=== PATIENT | female | born 1995 | race Caucasian/White ===

== ENCOUNTER 2018-03-29 20:53 | Emergency (ER) | payer MEDICAID ==
[~2018-03-29] VITALS: Ht 167.6 cm; Wt 80.5 kg
[2018-03-29 21:06] VITALS: BP 124/86
== END 2018-03-30 00:37 | disposition left against medical advice (07) ==
LOC: ER 20:54
DX: M54.9 Dorsalgia, unspecified (principal); Z53.21 Procedure and treatment not carried out due to patient leaving prior to being seen by health care provider

== ENCOUNTER 2018-09-12 14:36 | Inpatient (IN) | payer MEDICAID, OTHER ==
[~2018-09-12] VITALS: Ht 167.6 cm; Wt 85.0 kg
[2018-09-12 15:20] LABS: BASOPHILS % (AUTO) 0.2 % (0-1); EOSINOPHILS % (AUTO) 0 % (0-6); HEMATOCRIT 38.8 % (35.0-45.0); HEMOGLOBIN 13.3 g/dl (12.0-16.0); LYMPHOCYTES # (AUTO) 0.7 X10'3 (1.1-4.8); LYMPHOCYTES % (AUTO) 3.8 % (21-51); MEAN CORPUSCULAR HEMOGLOBIN 29.4 PG (27.0-31.0); MEAN CORPUSCULAR HGB CONC 34.4 g/dL (33.0-36.5); MEAN CORPUSCULAR VOLUME 85.6 FL (78-98); MEAN PLATELET VOLUME 7.4 FL (7.4-10.4); MONOCYTES # (AUTO) 0.8 X10'3 (0-0.9); MONOCYTES % (AUTO) 4.1 % (2-12); NEUTROPHILS # (AUTO) 17.3 X10'3 (1.8-7.7); NEUTROPHILS % (AUTO) 91.9 % (42-75); PLATELET COUNT 214 X10'3 (140-440); RED BLOOD COUNT 4.53 X10'6 (4.20-5.60); RED CELL DISTRIBUTION WIDTH 12.9 % (11.5-14.5); WHITE BLOOD COUNT 18.8 X10'3 (4.5-11.0)
[2018-09-12] MEDS ORDERED: normal saline 1000ML IV soln IVB ONE ×2 (15:25→16:25)
[2018-09-12] MEDS ORDERED: ondansetron/PF 4mg/2ml inj IV ONE (15:25)
[2018-09-12 16:04] LABS: ALANINE AMINOTRANSFERASE 23 U/L (12-78); ALBUMIN 2.6 G/DL (3.4-5.0); ALBUMIN/GLOBULIN RATIO 0.5 (1.1-1.5); ALKALINE PHOSPHATASE 107 IU/L (46-116); ANION GAP 15 (8-16); ASPARTATE AMINO TRANSFERASE 14 U/L (10-37); BILIRUBIN,TOTAL 1.5 MG/DL (0.1-1.0); BLOOD UREA NITROGEN 24 MG/DL (7-18); BUN/CREATININE RATIO 11.4 (6.6-38.0); CALCIUM 8.5 MG/DL (8.5-10.1); CHLORIDE 91 MMOL/L (99-107); GLUCOSE 100 MG/DL (70-104); SODIUM 129 MMOL/L (135-145); TOTAL PROTEIN 7.4 G/DL (6.4-8.2); eGFR 29 ML/MIN
[2018-09-12 16:17] LABS: POTASSIUM 2.7 MMOL/L (3.5-5.1)
[2018-09-12] MEDS ORDERED: CefTRIAXone 2gm/D5W 50ml 50 ML IV ONE (16:30)
[2018-09-12] MEDS ORDERED: potassium Cl 20 mEq SR tablet PO STA (16:42)
[2018-09-12] MEDS ORDERED: potassium Cl 10 mEq/100mL bag IV ONE (16:45)
[2018-09-12] MEDS ORDERED: NO HOME MEDS (17:21)
[2018-09-12] MEDS ORDERED: magnesium 2GM in 50ml NS 50 ML IV PRN (17:40)
[2018-09-12] MEDS ORDERED: potassium CL 10mEq/100ml bag 100 ML IV PRN ×2 (17:40)
[2018-09-12] MEDS ORDERED: diphenhydrAMINE 50 mg/ml inj IV PRN (17:40)
[2018-09-12] MEDS ORDERED: acetaminophen 325mg tablet PO PRN ×2 (17:40)
[2018-09-12] MEDS ORDERED: morphine 2 MG/ML inj. syringe IV PRN ×2 (17:40)
[2018-09-12] MEDS ORDERED: magnesium 4gm in 100ml NS 100 ML IV PRN (17:40)
[2018-09-12] MEDS ORDERED: magnesium Cl slow-release 64mg tablet PO PRN (17:40)
[2018-09-12] MEDS ORDERED: HYDROcodone/acetaminophen 5mg/325mg tablet PO PRN (17:40)
[2018-09-12] MEDS ORDERED: magnesium hydroxide 30ml (MOM) UD suspension PO PRN (17:40)
[2018-09-12] MEDS ORDERED: diphenhydrAMINE 25mg capsule PO PRN (17:40)
[2018-09-12] MEDS: K and/or MAG REPLACEMENT MC SCH (17:40)
[2018-09-12] MEDS ORDERED: mag hydrox/Alum hydrox/simeth 30ml oral suspension PO PRN (17:40)
[2018-09-12] MEDS ORDERED: acetaminophen 325mg tablet PO STA (17:41)
--- NOTE | 2018-09-12 18:33 | NUR ---
HOSPITALIST JAY AT BEDSIDE FOR ADMISSION - UA SENT TO LAB
[2018-09-12 18:34] LABS: HEMOGLOBIN A1C 5.4 % (4.5-6.2)
[2018-09-12] MEDS: normal saline 1000ml 1,000 ML IV SCH (19:09)
--- NOTE | 2018-09-12 19:35 | NUR ---
visitor at bedside - pt in no distress, resting on gurney - awiaiting room upstairs
[2018-09-12] MEDS ORDERED: CefTRIAXone/D5W-Rocephin 1gm 50 ML IV ONE (19:55)
--- NOTE | 2018-09-12 20:22 | NUR ---
Patient in room [facility]. I have received report from JAIMIE Denise and had the opportunity to ask questions and assume patient care.
[2018-09-12 20:45] VITALS: BP 103/52
[2018-09-12] MEDS: HYDROcodone/acetaminophen 10/325mg tab PO PRN (21:35)
[2018-09-12] MEDS: heparin, porcine 5000 units/ml vial SQ SCH (22:26)
[2018-09-12] MEDS: azithromycin/NS 500mg/250ml 250 ML IV SCH (22:26)
[2018-09-12] MEDS: ondansetron/PF 4mg/2ml inj IV PRN (22:39)
[2018-09-12] MEDS: potassium Cl 20 mEq SR tablet PO PRN (23:06)
--- NOTE | 2018-09-12 23:08 | NUR ---
offered MOM, pt refused at this time.
[2018-09-13] VITALS: BP 95/56
[2018-09-13] MEDS: potassium Cl 20 mEq SR tablet PO PRN (03:22)
[2018-09-13] MEDS: HYDROcodone/acetaminophen 10/325mg tab PO PRN ×3 (03:22→19:05)
[2018-09-13] MEDS: normal saline 1000ml 1,000 ML IV SCH ×3 (03:23→17:13)
[2018-09-13 05:57] LABS: ALANINE AMINOTRANSFERASE 20 U/L (12-78); ALBUMIN 2.1 G/DL (3.4-5.0); ALBUMIN/GLOBULIN RATIO 0.5 (1.1-1.5); ALKALINE PHOSPHATASE 106 IU/L (46-116); ANION GAP 10 (8-16); ASPARTATE AMINO TRANSFERASE 20 U/L (10-37); BILIRUBIN,TOTAL 1.5 MG/DL (0.1-1.0); BLOOD UREA NITROGEN 25 MG/DL (7-18); BUN/CREATININE RATIO 13.4 (6.6-38.0); CALCIUM 7.6 MG/DL (8.5-10.1); CHLORIDE 103 MMOL/L (99-107); CREATININE 1.86 MG/DL (0.40-0.90); GLUCOSE 95 MG/DL (70-104); MAGNESIUM 2.2 MG/DL (1.5-2.4); PHOSPHORUS 3.4 MG/DL (2.3-4.5); POTASSIUM 4.1 MMOL/L (3.5-5.1); SODIUM 138 MMOL/L (135-145); TOTAL CARBON DIOXIDE 24.8 MMOL/L (24-32); TOTAL PROTEIN 6.3 G/DL (6.4-8.2); eGFR 34 ML/MIN
[2018-09-13 05:59] LABS: BASOPHILS % (AUTO) 0.1 % (0-1); EOSINOPHILS % (AUTO) 0 % (0-6); HEMOGLOBIN 12.6 g/dl (12.0-16.0); LYMPHOCYTES # (AUTO) 0.6 X10'3 (1.1-4.8); LYMPHOCYTES % (AUTO) 3.8 % (21-51); MEAN CORPUSCULAR HEMOGLOBIN 29.6 PG (27.0-31.0); MEAN CORPUSCULAR VOLUME 87.1 FL (78-98); MEAN PLATELET VOLUME 7.7 FL (7.4-10.4); MONOCYTES % (AUTO) 6.4 % (2-12); NEUTROPHILS # (AUTO) 14.3 X10'3 (1.8-7.7); NEUTROPHILS % (AUTO) 89.7 % (42-75); PLATELET COUNT 189 X10'3 (140-440); RED BLOOD COUNT 4.24 X10'6 (4.20-5.60); RED CELL DISTRIBUTION WIDTH 13.3 % (11.5-14.5); WHITE BLOOD COUNT 15.9 X10'3 (4.5-11.0)
--- NOTE | 2018-09-13 06:30 | NUR ---
RECEIVED REPORT FROM LINDA Joyce RN
--- NOTE | 2018-09-13 06:36 | NUR ---
Problems reprioritized. Patient report given, questions answered & plan of care reviewed with JAIMIE Candelaria.
[2018-09-13 07:00] VITALS: BP 103/49
[2018-09-13] MEDS: K and/or MAG REPLACEMENT MC SCH (08:00)
[2018-09-13] MEDS ORDERED: CefTRIAXone/D5W-Rocephin 1gm 50 ML IV SCH (08:00)
[2018-09-13] MEDS: azithromycin/NS 500mg/250ml 250 ML IV SCH (08:00)
--- NOTE | 2018-09-13 08:15 | NUR ---
JAIMIE Candelaria notified that rags laborer (Mica) requested a new specimen be sent to lab to rerun pt's UA, Urine Culture, HCG, and Tox Screen.
[2018-09-13] MEDS: CefTRIAXone 2gm/D5W 50ml 50 ML IV SCH (08:34)
[2018-09-13] MEDS: heparin, porcine 5000 units/ml vial SQ SCH ×2 (08:38→19:06)
--- NOTE | 2018-09-13 08:39 | NUR ---
spoke with pt and let her know that i put a new hat in the toilet and would like another ua. she states an understanding. hung her first iv axb.
[2018-09-13] MEDS: ondansetron/PF 4mg/2ml inj IV PRN (10:22)
[2018-09-13 11:00] VITALS: BP 127/64
[2018-09-13 11:20] LABS: URINE HCG NEGATIVE (NEG)
[2018-09-13 11:22] LABS: CLARITY,URINE SLIGHTLY CLOUDY (Clear); COLOR,URINE YELLOW (Yellow); GLUCOSE, URINE NEGATIVE (Neg); KETONES,URINE NEGATIVE (Neg); LEUKOCYTE ESTERASE ,URINE MODERATE (Neg); NITRITES, URINE NEGATIVE (Neg); OCCULT BLOOD,URINE MODERATE (Neg); PROTEIN,URINE 30 mg/dl (Neg)
[2018-09-13 11:33] LABS: URINE AMPHETAMINE SCREEN NEGATIVE (Neg); URINE BARBITUATE SCREEN NEGATIVE (Neg); URINE BENZODIAZEPINES SCREEN NEGATIVE (Neg); URINE CANNABINOID SCREEN NEGATIVE (Neg); URINE COCAINE SCREEN NEGATIVE (Neg); URINE METHADONE SCREEN NEGATIVE (Neg); URINE OPIATE SCREEN POSITIVE (Neg); URINE PHENCYCLIDINE SCREEN NEGATIVE (Neg)
[2018-09-13 11:44] LABS: UA COLLECTION TYPE NON-SPECIFIED
[2018-09-13 11:46] LABS: BACTERIA,URINE 1+ /HPF (Neg); SQUAMOUS EPITHELIAL CELL,UR MANY /LPF (FEW); WBC,URINE 50-100 /HPF (0-4)
--- NOTE | 2018-09-13 13:00 | NUR ---
GAVE PT IS. EDUCATED HER ON HOW TO USE. PT IS LAYING FLAT TOO OFTEN AND NOT WANTING TO DO ANYTHING
--- NOTE | 2018-09-13 13:10 | NUR ---
Per lab request, another (4th) urine specimen sent to lab, due to prior specimen was contaminated. Pt stated she used clean catch technique. JAIMIE Candelaria aware.
[2018-09-13 13:27] LABS: CLARITY,URINE CLOUDY (Clear); COLOR,URINE YELLOW (Yellow); GLUCOSE, URINE NEGATIVE (Neg); KETONES,URINE NEGATIVE (Neg); LEUKOCYTE ESTERASE ,URINE MODERATE (Neg); NITRITES, URINE NEGATIVE (Neg); OCCULT BLOOD,URINE MODERATE (Neg); PROTEIN,URINE 30 mg/dl (Neg)
[2018-09-13 13:33] LABS: UA COLLECTION TYPE CLN CATCH MIDSTREAM
[2018-09-13 13:34] LABS: SQUAMOUS EPITHELIAL CELL,UR MODERATE /LPF (FEW)
[2018-09-13 13:35] LABS: BACTERIA,URINE 1+ /HPF (Neg)
[2018-09-13 13:36] LABS: MUCUS STRANDS FEW /LPF (Neg)
[2018-09-13 13:37] LABS: TRANSITIONAL EPI CELLS,URINE MODERATE /HPF; WBC,URINE TNTC /HPF (0-4)
[2018-09-13 13:38] LABS: RENAL CELLS, URINE FEW /HPF; WBC CLUMPS,URINE FEW /HPF (NEGATIVE)
--- NOTE | 2018-09-13 15:39 | NUR ---
Malnutrition consult: Pt reports wt loss of 20 lbs in 6 days r/t N/V. Pt seen at bedside reports she is no longer with N/V and endorses a good appetite. Pt reports UBW of 180 lbs; current documented wt is 187 lbs which is patient stated, pt reports taking that weight awhile ago. Pt with documented wt of 176 lbs March 2018. Pt on renal diet with documented 100% PO intake x 2 meals meeting nutrient needs. No edema or decrease in muscle strength. No visible fat or muscle wasting noted at RD visit. Pt currently does not meet criteria for malnutrition. Pt admit with UTI, pyelonephritis, sepsis and possible PNA. Pt provided with written and verbal protein education with RD contact information. Pt denies any food allergies or difficulty chewing/swallowing. Pt reports previously 8 days without a BM however with diarrhea today secondary to bowel care medications. Will continue to follow. Recommendations: 1) Continue renal diet with advancement to regular as medically indicated 2) Routine bowel care 3) Wt per rx Addendum: 09/13/18 at [address]añ[address] RD Amended: Links added.
[2018-09-13 18:00] VITALS: BP 121/70
--- NOTE | 2018-09-13 18:00 | NUR ---
Patient in room [facility]. I have received report from JAIMIE Candelaria and had the opportunity to ask questions and assume patient care.
--- NOTE | 2018-09-13 18:23 | NUR ---
Problems reprioritized. Patient report given, questions answered & plan of care reviewed with JON ETIENNE.
[2018-09-13] MEDS: lactobacillus rhamnosus 10,000 MMU CELLS/CAPSULE PO SCH (19:05)
[2018-09-14] VITALS: BP 96/50
[2018-09-14] MEDS: HYDROcodone/acetaminophen 10/325mg tab PO PRN ×4 (01:43→22:47)
[2018-09-14] MEDS: normal saline 1000ml 1,000 ML IV SCH ×2 (01:48→13:05)
[2018-09-14 04:39] LABS: BASOPHILS % (AUTO) 0.1 % (0-1); EOSINOPHILS % (AUTO) 0.2 % (0-6); HEMATOCRIT 33.2 % (35.0-45.0); HEMOGLOBIN 11.2 g/dl (12.0-16.0); LYMPHOCYTES # (AUTO) 1.1 X10'3 (1.1-4.8); LYMPHOCYTES % (AUTO) 8.8 % (21-51); MEAN CORPUSCULAR HEMOGLOBIN 28.8 PG (27.0-31.0); MEAN CORPUSCULAR HGB CONC 33.7 g/dL (33.0-36.5); MEAN CORPUSCULAR VOLUME 85.6 FL (78-98); MEAN PLATELET VOLUME 7.8 FL (7.4-10.4); MONOCYTES # (AUTO) 0.8 X10'3 (0-0.9); MONOCYTES % (AUTO) 6.7 % (2-12); NEUTROPHILS % (AUTO) 84.2 % (42-75); PLATELET COUNT 226 X10'3 (140-440); RED BLOOD COUNT 3.88 X10'6 (4.20-5.60); RED CELL DISTRIBUTION WIDTH 13.6 % (11.5-14.5); WHITE BLOOD COUNT 11.9 X10'3 (4.5-11.0)
[2018-09-14 04:56] LABS: ALANINE AMINOTRANSFERASE 21 U/L (12-78); ALBUMIN 1.6 G/DL (3.4-5.0); ALBUMIN/GLOBULIN RATIO 0.4 (1.1-1.5); ALKALINE PHOSPHATASE 88 IU/L (46-116); ANION GAP 9 (8-16); ASPARTATE AMINO TRANSFERASE 13 U/L (10-37); BILIRUBIN,TOTAL 0.7 MG/DL (0.1-1.0); BLOOD UREA NITROGEN 18 MG/DL (7-18); BUN/CREATININE RATIO 11.7 (6.6-38.0); CALCIUM 7.8 MG/DL (8.5-10.1); CHLORIDE 105 MMOL/L (99-107); CREATININE 1.54 MG/DL (0.40-0.90); GLUCOSE 96 MG/DL (70-104); PHOSPHORUS 1.5 MG/DL (2.3-4.5); POTASSIUM 3.1 MMOL/L (3.5-5.1); SODIUM 136 MMOL/L (135-145); TOTAL CARBON DIOXIDE 21.8 MMOL/L (24-32); TOTAL PROTEIN 5.4 G/DL (6.4-8.2); eGFR 42 ML/MIN
--- NOTE | 2018-09-14 06:13 | NUR ---
Problems reprioritized. Patient report given, questions answered & plan of care reviewed with JAIMIE Kincaid.
--- NOTE | 2018-09-14 06:20 | NUR ---
Patient in room [facility]. I have received report from Mulugeta ETIENNE and had the opportunity to ask questions and assume patient care.
[2018-09-14] MEDS: K and/or MAG REPLACEMENT MC SCH (07:18)
[2018-09-14] MEDS: CefTRIAXone 2gm/D5W 50ml 50 ML IV SCH (07:22)
[2018-09-14] MEDS: heparin, porcine 5000 units/ml vial SQ SCH ×2 (07:22→20:05)
[2018-09-14] MEDS: lactobacillus rhamnosus 10,000 MMU CELLS/CAPSULE PO SCH ×2 (07:22→20:02)
[2018-09-14] MEDS: potassium Cl 20 mEq SR tablet PO PRN ×2 (07:24→20:02)
[2018-09-14 08:25] VITALS: BP 100/55
[2018-09-14] MEDS: azithromycin/NS 500mg/250ml 250 ML IV SCH (08:27)
--- NOTE | 2018-09-14 09:45 | NUR ---
paged regarding phos of 1.5. Awaiting call back.
[2018-09-14 11:24] VITALS: BP 105/70
[2018-09-14] MEDS ORDERED: potassium phosphate inj 30 MMOL in normal saline 500ml IV soln 490 ML IV ONE (12:25)
[2018-09-14 18:00] VITALS: BP 104/63
--- NOTE | 2018-09-14 18:30 | NUR ---
Patient in room [facility]. I have received report from JAIMIE TEMPLETON and had the opportunity to ask questions and assume patient care.
--- NOTE | 2018-09-14 18:39 | NUR ---
Problems reprioritized. Patient report given, questions answered & plan of care reviewed with Mulugeta ETIENNE.
[2018-09-15] VITALS: BP 118/68
--- NOTE | 2018-09-15 | NUR ---
temp down to 99.7 after tylenol dose for fever given. will continue to monitor
[2018-09-15] MEDS: normal saline 1000ml 1,000 ML IV SCH ×2 (01:02→08:46)
[2018-09-15 05:03] LABS: BASOPHILS % (AUTO) 0.3 % (0-1); EOSINOPHILS # (AUTO) 0.1 X10'3 (0-0.9); EOSINOPHILS % (AUTO) 1.3 % (0-6); HEMATOCRIT 34.4 % (35.0-45.0); HEMOGLOBIN 11.5 g/dl (12.0-16.0); LYMPHOCYTES # (AUTO) 1.6 X10'3 (1.1-4.8); LYMPHOCYTES % (AUTO) 21.6 % (21-51); MEAN CORPUSCULAR HGB CONC 33.4 g/dL (33.0-36.5); MEAN CORPUSCULAR VOLUME 86.9 FL (78-98); MEAN PLATELET VOLUME 7.3 FL (7.4-10.4); MONOCYTES # (AUTO) 0.8 X10'3 (0-0.9); MONOCYTES % (AUTO) 10.9 % (2-12); NEUTROPHILS # (AUTO) 4.9 X10'3 (1.8-7.7); NEUTROPHILS % (AUTO) 65.9 % (42-75); PLATELET COUNT 246 X10'3 (140-440); RED BLOOD COUNT 3.96 X10'6 (4.20-5.60); RED CELL DISTRIBUTION WIDTH 14.1 % (11.5-14.5); WHITE BLOOD COUNT 7.4 X10'3 (4.5-11.0)
[2018-09-15 05:16] LABS: ALANINE AMINOTRANSFERASE 23 U/L (12-78); ALBUMIN 1.5 G/DL (3.4-5.0); ALBUMIN/GLOBULIN RATIO 0.4 (1.1-1.5); ALKALINE PHOSPHATASE 92 IU/L (46-116); ANION GAP 10 (8-16); ASPARTATE AMINO TRANSFERASE 16 U/L (10-37); BILIRUBIN,TOTAL 0.3 MG/DL (0.1-1.0); BLOOD UREA NITROGEN 10 MG/DL (7-18); BUN/CREATININE RATIO 7.1 (6.6-38.0); CHLORIDE 109 MMOL/L (99-107); CREATININE 1.41 MG/DL (0.40-0.90); GLUCOSE 93 MG/DL (70-104); MAGNESIUM 1.8 MG/DL (1.5-2.4); PHOSPHORUS 2.9 MG/DL (2.3-4.5); POTASSIUM 3.5 MMOL/L (3.5-5.1); SODIUM 141 MMOL/L (135-145); TOTAL CARBON DIOXIDE 22.3 MMOL/L (24-32); TOTAL PROTEIN 5.5 G/DL (6.4-8.2); eGFR 47 ML/MIN
[2018-09-15 06:00] VITALS: BP 112/67
--- NOTE | 2018-09-15 06:40 | NUR ---
Problems reprioritized. Patient report given, questions answered & plan of care reviewed with JAIMIE Celaya.
[2018-09-15] MEDS: K and/or MAG REPLACEMENT MC SCH (08:00)
[2018-09-15] MEDS ORDERED: azithromycin 250mg tablet PO SCH (08:00)
[2018-09-15] MEDS: CefTRIAXone 2gm/D5W 50ml 50 ML IV SCH (08:49)
[2018-09-15] MEDS: lactobacillus rhamnosus 10,000 MMU CELLS/CAPSULE PO SCH (08:50)
[2018-09-15] MEDS: heparin, porcine 5000 units/ml vial SQ SCH (08:50)
[2018-09-15] MEDS ORDERED: CIPR-230 PO (09:51)
[2018-09-15] MEDS ORDERED: LACT1CAP26 PO (09:51)
[2018-09-15 11:00] VITALS: BP 109/62
== END 2018-09-15 13:23 | disposition home or self-care (01) | DRG 871 ==
LOC: ER 14:37 → SUR 3N 20:13 → CMPBEDREQ 20:31
PROVIDERS: ADMIT Family Medicine; ATTEND Family Medicine
DX: A41.51 Sepsis due to Escherichia coli [E. coli] (principal); J18.9 Pneumonia, unspecified organism; N17.0 Acute kidney failure with tubular necrosis; R65.21 Severe sepsis with septic shock; E87.1 Hypo-osmolality and hyponatremia; N10 Acute pyelonephritis; F17.210 Nicotine dependence, cigarettes, uncomplicated; E87.6 Hypokalemia; M41.9 Scoliosis, unspecified; Z91.041 Radiographic dye allergy status; Z90.49 Acquired absence of other specified parts of digestive tract; Z71.6 Tobacco abuse counseling; E83.39 Other disorders of phosphorus metabolism
CPT/HCPCS: 36415; 71046; 74176; 80053; 80305; 81001; 81025; 83036; 83605; 83735; 84100; 84145; 85025; 85610; 87040; 87077; 87081; 87088; 87186; 99285; G0378; J0456; J0696; J1644; J2405; J3480; J7030; J7040

== ENCOUNTER 2021-02-08 17:44 | Inpatient (IN) | payer MEDICAID ==
[~2021-02-08] VITALS: Ht 167.6 cm; Wt 74.5 kg
[~2021-02-08 17:44] MED LIST: LACT1CAP26 PO
[2021-02-08] MEDS ORDERED: normal saline 1000ml 1,000 ML IV ONE (18:05)
[2021-02-08] MEDS ORDERED: normal saline 1000ML IV soln IVB ONE ×2 (18:20→20:50)
[2021-02-08 18:22] LABS: BASOPHILS % (AUTO) 0.1 % (0-1); EOSINOPHILS % (AUTO) 0.1 % (0-6); HEMATOCRIT 40.9 % (35.0-45.0); HEMOGLOBIN 14.3 g/dl (12.0-16.0); LYMPHOCYTES # (AUTO) 0.9 X10'3 (1.1-4.8); LYMPHOCYTES % (AUTO) 3.9 % (21-51); MEAN CORPUSCULAR HEMOGLOBIN 29.6 PG (27.0-31.0); MEAN CORPUSCULAR HGB CONC 34.9 g/dL (33.0-36.5); MEAN CORPUSCULAR VOLUME 84.9 FL (78-98); MEAN PLATELET VOLUME 6.7 FL (7.4-10.4); MONOCYTES # (AUTO) 0.5 X10'3 (0-0.9); MONOCYTES % (AUTO) 2.3 % (2-12); NEUTROPHILS # (AUTO) 21.7 X10'3 (1.8-7.7); NEUTROPHILS % (AUTO) 93.6 % (42-75); PLATELET COUNT 286 X10'3 (140-440); RED BLOOD COUNT 4.81 X10'6 (4.20-5.60); RED CELL DISTRIBUTION WIDTH 12.8 % (11.5-14.5); WHITE BLOOD COUNT 23.2 X10'3 (4.5-11.0)
[2021-02-08 18:28] LABS: D-DIMER 0.54 MG/L FEU (0-0.50)
[2021-02-08] MEDS ORDERED: azithromycin/NS 500mg/250ml 250 ML IV ONE (18:30)
[2021-02-08] MEDS ORDERED: CefTRIAXone 2gm/D5W 50ml BAG 50 ML IV ONE (18:30)
[2021-02-08 18:42] LABS: ALANINE AMINOTRANSFERASE 23 U/L (12-78); ALBUMIN 3.2 G/DL (3.4-5.0); ALBUMIN/GLOBULIN RATIO 0.7 (1.1-1.5); ALKALINE PHOSPHATASE 102 IU/L (46-116); ANION GAP 12 (8-16); ASPARTATE AMINO TRANSFERASE 10 U/L (10-37); BILIRUBIN,TOTAL 0.9 MG/DL (0.1-1.0); BLOOD UREA NITROGEN 11 MG/DL (7-18); BUN/CREATININE RATIO 12.1 (6.6-38.0); CHLORIDE 98 MMOL/L (99-107); CREATININE 0.91 MG/DL (0.40-0.90); GLUCOSE 130 MG/DL (70-104); POTASSIUM 3.4 MMOL/L (3.5-5.1); SODIUM 135 MMOL/L (135-145); TOTAL CARBON DIOXIDE 24.9 MMOL/L (24-32); TOTAL PROTEIN 7.7 G/DL (6.4-8.2); eGFR 75 ML/MIN
[2021-02-08] MEDS ORDERED: ondansetron 4mg rapidly disintigrating tab PO ONE (18:50)
[2021-02-08] MEDS ORDERED: morphine 2 MG/ML inj. syringe IV ONE ×2 (18:50→19:20)
[2021-02-08] MEDS ORDERED: vancomycin/NS 1 GM ADD-VANTAGE 250 ML X 1 DOSE IV ONE (19:05)
[2021-02-08] MEDS ORDERED: VANCOMYCIN 1GM/200ML IVPB 200 ML IV ONE (19:05)
[2021-02-08 19:06] LABS: ANISOCYTOSIS 1+; PLATELET ESTIMATE NORMAL; TOTAL CELLS COUNTED 100
[2021-02-08] MEDS ORDERED: methylPREDNISolone sod succ/PF 40mg inj. IV STA (19:16)
[2021-02-08] MEDS ORDERED: iohexol 350MG/ML 100ml bottle IV ONE (20:05)
[2021-02-08] MEDS ORDERED: ketorolac trometh. 30mg/ml inj. IV ONE (20:50)
[2021-02-08] MEDS ORDERED: morphine 4 MG/ML inj SYRINge IV ONE (20:50)
[2021-02-08] MEDS ORDERED: temazepam 15mg capsule PO PRN (21:00)
[2021-02-08] MEDS ORDERED: magnesium Cl slow-release 64mg tablet PO PRN (21:05)
[2021-02-08] MEDS ORDERED: potassium CL 10mEq/100ml bag 100 ML IV PRN (21:05)
[2021-02-08] MEDS ORDERED: magnesium 4gm in 100ml NS 100 ML IV PRN (21:05)
[2021-02-08] MEDS ORDERED: ondansetron/PF 4mg/2ml inj IV PRN (21:05)
[2021-02-08] MEDS ORDERED: acetaminophen 325mg tablet PO PRN ×2 (21:05)
[2021-02-08] MEDS ORDERED: magnesium hydroxide 30ml (MOM) UD suspension PO PRN (21:05)
[2021-02-08] MEDS ORDERED: mag hydrox/Alum hydrox/simeth 30ml oral suspension PO PRN (21:05)
[2021-02-08] MEDS ORDERED: potassium Cl 20 mEq SR tablet PO PRN ×2 (21:05)
[2021-02-08] MEDS ORDERED: morphine 2 MG/ML inj. syringe IV PRN (21:05)
[2021-02-08] MEDS ORDERED: magnesium 2GM in 50ml NS 50 ML IV PRN (21:05)
[2021-02-08] MEDS ORDERED: albuterol 2.5 MG/3 ML nebule NEB PRN (21:50)
[2021-02-08] MEDS ORDERED: NO HOME MEDS (22:12)
[2021-02-09] MEDS: nicotine 14mg patch - 24hr TD SCH ×2 (00:35→08:00)
[2021-02-09] MEDS: normal saline 1000ml 1,000 ML IV SCH ×3 (00:38→16:36)
[2021-02-09 06:27] LABS: URINE AMPHETAMINE SCREEN POSITIVE (Neg); URINE BARBITUATE SCREEN NEGATIVE (Neg); URINE BENZODIAZEPINES SCREEN NEGATIVE (Neg); URINE CANNABINOID SCREEN NEGATIVE (Neg); URINE COCAINE SCREEN NEGATIVE (Neg); URINE METHADONE SCREEN NEGATIVE (Neg); URINE OPIATE SCREEN POSITIVE (Neg); URINE PHENCYCLIDINE SCREEN NEGATIVE (Neg)
--- NOTE | 2021-02-09 06:30 | NUR ---
first contact with pt. pt found sitting in bed in position of comfort. reports no pain after morphine admin. no distress, awaiting md re-eval.
--- NOTE | 2021-02-09 06:57 | NUR ---
pt ambulated with steady gait to/from restroom.
[2021-02-09 07:55] LABS: BASOPHILS % (AUTO) 0 % (0-1); EOSINOPHILS % (AUTO) 0 % (0-6); HEMATOCRIT 40.6 % (35.0-45.0); HEMOGLOBIN 13.4 g/dl (12.0-16.0); LYMPHOCYTES # (AUTO) 0.7 X10'3 (1.1-4.8); LYMPHOCYTES % (AUTO) 4.1 % (21-51); MEAN CORPUSCULAR HEMOGLOBIN 28.8 PG (27.0-31.0); MEAN CORPUSCULAR HGB CONC 33.1 g/dL (33.0-36.5); MEAN CORPUSCULAR VOLUME 86.9 FL (78-98); MONOCYTES # (AUTO) 0.8 X10'3 (0-0.9); MONOCYTES % (AUTO) 4.4 % (2-12); NEUTROPHILS # (AUTO) 16.6 X10'3 (1.8-7.7); NEUTROPHILS % (AUTO) 91.5 % (42-75); PLATELET COUNT 281 X10'3 (140-440); RED BLOOD COUNT 4.67 X10'6 (4.20-5.60); RED CELL DISTRIBUTION WIDTH 13.1 % (11.5-14.5); WHITE BLOOD COUNT 18.1 X10'3 (4.5-11.0)
[2021-02-09] MEDS: K and/or MAG REPLACEMENT MC SCH ×2 (07:59→20:00)
[2021-02-09] MEDS: atenolol 25mg tablet PO SCH (08:00)
[2021-02-09] MEDS: CefTRIAXone 2gm/D5W 50ml BAG 50 ML IV SCH (08:00)
[2021-02-09] MEDS: heparin, porcine 5000 units/ml vial SQ SCH ×2 (08:19→20:04)
[2021-02-09 08:26] LABS: ALANINE AMINOTRANSFERASE 21 U/L (12-78); ALBUMIN 2.7 G/DL (3.4-5.0); ALBUMIN/GLOBULIN RATIO 0.6 (1.1-1.5); ALKALINE PHOSPHATASE 93 IU/L (46-116); ANION GAP 10 (8-16); ASPARTATE AMINO TRANSFERASE 10 U/L (10-37); BILIRUBIN,TOTAL 0.5 MG/DL (0.1-1.0); BLOOD UREA NITROGEN 14 MG/DL (7-18); BUN/CREATININE RATIO 16.1 (6.6-38.0); CALCIUM 9.1 MG/DL (8.5-10.1); CHLORIDE 107 MMOL/L (99-107); CREATININE 0.87 MG/DL (0.40-0.90); GLUCOSE 98 MG/DL (70-104); POTASSIUM 4.4 MMOL/L (3.5-5.1); SODIUM 142 MMOL/L (135-145); TOTAL CARBON DIOXIDE 24.8 MMOL/L (24-32); TOTAL PROTEIN 7.1 G/DL (6.4-8.2); eGFR 79 ML/MIN
[2021-02-09] MEDS: azithromycin/NS 500mg/250ml 250 ML IV SCH (08:45)
--- NOTE | 2021-02-09 09:00 | NUR ---
breakfast tray provided, sitting in bed and tolerating well
--- NOTE | 2021-02-09 10:20 | NUR ---
medicated for nausea, placed in gown.
[2021-02-09] MEDS: HYDROcodone/acetaminophen 5mg/325mg tablet PO PRN ×2 (11:16→20:04)
--- NOTE | 2021-02-09 11:20 | NUR ---
medicated for pain in left chest/back
--- NOTE | 2021-02-09 13:00 | NUR ---
lunch tray provided, sitting in bed and tolerating well
--- NOTE | 2021-02-09 14:00 | NUR ---
pt ambulated with steady gait to/from restroom.
--- NOTE | 2021-02-09 15:19 | NUR ---
telephone report to JAIMIE Luis
[2021-02-09 15:42] VITALS: BP 90/53
[2021-02-09 18:00] VITALS: BP 99/59
[2021-02-09] MEDS: lactobacillus rhamnosus 10,000 MMU CELLS/CAPSULE PO SCH (20:03)
[2021-02-10 01:37] VITALS: BP 106/69
[2021-02-10 02:00] VITALS: BP 102/63
[2021-02-10] MEDS: normal saline 1000ml 1,000 ML IV SCH (03:57)
[2021-02-10 06:00] VITALS: BP 103/64
[2021-02-10 06:51] LABS: BASOPHILS % (AUTO) 0.1 % (0-1); EOSINOPHILS % (AUTO) 0.5 % (0-6); HEMATOCRIT 35.7 % (35.0-45.0); LYMPHOCYTES % (AUTO) 32.3 % (21-51); MEAN CORPUSCULAR HEMOGLOBIN 29.1 PG (27.0-31.0); MEAN CORPUSCULAR HGB CONC 33.8 g/dL (33.0-36.5); MEAN CORPUSCULAR VOLUME 86.3 FL (78-98); MEAN PLATELET VOLUME 6.9 FL (7.4-10.4); MONOCYTES # (AUTO) 0.4 X10'3 (0-0.9); MONOCYTES % (AUTO) 3.9 % (2-12); NEUTROPHILS # (AUTO) 5.8 X10'3 (1.8-7.7); NEUTROPHILS % (AUTO) 63.2 % (42-75); PLATELET COUNT 286 X10'3 (140-440); RED BLOOD COUNT 4.13 X10'6 (4.20-5.60); RED CELL DISTRIBUTION WIDTH 13.5 % (11.5-14.5); WHITE BLOOD COUNT 9.2 X10'3 (4.5-11.0)
--- NOTE | 2021-02-10 06:58 | NUR ---
Problems reprioritized. Patient report given, questions answered & plan of care reviewed with Candy ETIENNE .
[2021-02-10 07:18] LABS: ALANINE AMINOTRANSFERASE 26 U/L (12-78); ALBUMIN 2.2 G/DL (3.4-5.0); ALBUMIN/GLOBULIN RATIO 0.6 (1.1-1.5); ALKALINE PHOSPHATASE 73 IU/L (46-116); ANION GAP 9 (8-16); ASPARTATE AMINO TRANSFERASE 17 U/L (10-37); BILIRUBIN,TOTAL 0.2 MG/DL (0.1-1.0); BLOOD UREA NITROGEN 16 MG/DL (7-18); BUN/CREATININE RATIO 23.9 (6.6-38.0); CHLORIDE 112 MMOL/L (99-107); CREATININE 0.67 MG/DL (0.40-0.90); GLUCOSE 101 MG/DL (70-104); MAGNESIUM 1.8 MG/DL (1.5-2.4); PHOSPHORUS 2.4 MG/DL (2.3-4.5); POTASSIUM 3.1 MMOL/L (3.5-5.1); SODIUM 145 MMOL/L (135-145); TOTAL CARBON DIOXIDE 23.7 MMOL/L (24-32); TOTAL PROTEIN 5.8 G/DL (6.4-8.2); eGFR > 90 ML/MIN
[2021-02-10] MEDS: heparin, porcine 5000 units/ml vial SQ SCH (08:00)
[2021-02-10] MEDS: atenolol 25mg tablet PO SCH (08:00)
[2021-02-10] MEDS: lactobacillus rhamnosus 10,000 MMU CELLS/CAPSULE PO SCH (08:18)
[2021-02-10] MEDS: CefTRIAXone 2gm/D5W 50ml BAG 50 ML IV SCH (08:19)
[2021-02-10] MEDS: nicotine 14mg patch - 24hr TD SCH (08:19)
[2021-02-10] MEDS: azithromycin/NS 500mg/250ml 250 ML IV SCH (08:19)
[2021-02-10] MEDS: K and/or MAG REPLACEMENT MC SCH (08:34)
[2021-02-10] MEDS ORDERED: LACT1CAP26 PO (09:28)
[2021-02-10] MEDS ORDERED: CEFD300C3 PO (09:28)
[2021-02-10] MEDS ORDERED: ALBU8.5H17 INH (09:28)
[2021-02-10] MEDS ORDERED: AZIT500T9 PO (09:28)
[2021-02-10 10:00] VITALS: BP 109/72
[2021-02-10 10:33] LABS: CLARITY,URINE CLEAR (Clear); COLOR,URINE YELLOW (Yellow); GLUCOSE, URINE NEGATIVE (Neg); KETONES,URINE NEGATIVE (Neg); LEUKOCYTE ESTERASE ,URINE NEGATIVE (Neg); NITRITES, URINE NEGATIVE (Neg); OCCULT BLOOD,URINE NEGATIVE (Neg); PH,URINE 7.5 (4.8-8.0); PROTEIN,URINE NEGATIVE (Neg)
[2021-02-10 10:54] LABS: UA COLLECTION TYPE NON-SPECIFIED
[2021-02-10 11:42] LABS: URINE HCG NEGATIVE (NEG)
== END 2021-02-10 12:35 | disposition home or self-care (01) | DRG 720 ==
LOC: ER 17:45 → ED HOLD 21:07 → MED 3N 02-09 15:35
PROVIDERS: ADMIT Internal Medicine; ATTEND Family Medicine
PROC: B32T1ZZ Computerized Tomography (CT Scan) of Left Pulmonary Artery using Low Osmolar Contrast (ICD-10-PCS; principal; 2021-02-08)
PROC: B3201ZZ Computerized Tomography (CT Scan) of Thoracic Aorta using Low Osmolar Contrast (ICD-10-PCS; 2021-02-08)
PROC: B32S1ZZ Computerized Tomography (CT Scan) of Right Pulmonary Artery using Low Osmolar Contrast (ICD-10-PCS; 2021-02-08)
DX: A41.9 Sepsis, unspecified organism (principal); J18.9 Pneumonia, unspecified organism; F17.210 Nicotine dependence, cigarettes, uncomplicated; M41.9 Scoliosis, unspecified; Z20.822 Contact with and (suspected) exposure to COVID-19; R04.2 Hemoptysis; Z91.041 Radiographic dye allergy status; Z71.6 Tobacco abuse counseling
CPT/HCPCS: 36415; 71045; 71275; 80053; 80305; 81003; 81025; 83605; 83735; 84100; 84145; 85007; 85025; 85379; 87040; 87081; 87502; 87503; 87635; 93005; 94640; 94760; 96374; 96375; 99285; C9803; G0378; J0456; J0696; J1644; J1885; J2270; J2405; J2920; J3370; J7030; Q9967

== ENCOUNTER 2023-02-12 10:50 | Emergency (ER) | payer MEDICAID ==
[~2023-02-12] VITALS: Ht 167.6 cm; Wt 100.2 kg
[~2023-02-12 10:50] MED LIST changes: +ALBU8.5H17 INH; +AZIT500T9 PO
[2023-02-12 10:52] VITALS: BP 152/88; PULSE 76; RESP 18; TEMP 99.5; O2SAT 97
[2023-02-12] MEDS ORDERED: LIDOCAINE 1%/EPI 1:100,000 inj. 10 ML multi-dose vial IJ ONE (11:45)
[2023-02-12] MEDS ORDERED: AMOX-580 PO (12:54)
== END 2023-02-12 13:00 | disposition home or self-care (01) ==
LOC: ER 10:50
DX: S51.812A Laceration without foreign body of left forearm, initial encounter (principal); W54.0XXA Bitten by dog, initial encounter; Y93.89 Activity, other specified; Y92.89 Other specified places as the place of occurrence of the external cause; Y99.8 Other external cause status
CPT/HCPCS: 12002; 99283; J7030; A6258